=== PATIENT | female | born 1990 | race African-American/Black ===

== ENCOUNTER 2020-11-22 08:34 | Emergency (ER) | payer OTHER ==
[~2020-11-22] VITALS: Ht 172.7 cm; Wt 68.0 kg
[2020-11-22] MEDS ORDERED: LIDOCAINE HCL 1% 20ML VIAL (Pyxis) INJ INFIL ONE (10:15)
[2020-11-22] MEDS ORDERED: IBUPROFEN 400MG TABLET PO ONE (10:15)
[2020-11-22] MEDS ORDERED: CEFTRIAXONE SODIUM 1 G/VIAL IM ONE (10:15)
[2020-11-22 10:23] VITALS: BP 124/81
[2020-11-22] MEDS ORDERED: CEPH500C2 MT (10:51)
[2020-11-22] MEDS ORDERED: IBUP-2028 MT (10:51)
[2020-11-22] MEDS ORDERED: SULF1TAB48 MT (10:51)
== END 2020-11-22 11:35 | disposition home or self-care (01) ==
LOC: ER 08:58
DX: L03.211 Cellulitis of face (principal); F15.180 Other stimulant abuse with stimulant-induced anxiety disorder; R03.0 Elevated blood-pressure reading, without diagnosis of hypertension; F17.210 Nicotine dependence, cigarettes, uncomplicated; Z71.6 Tobacco abuse counseling; Z59.0 Homelessness
CPT/HCPCS: 81025; 96372; 99283; 99406; J0696; J3490